=== PATIENT | female | born 2000 | race African-American/Black ===

== ENCOUNTER 2023-05-09 20:34 | Emergency (ER) | payer MEDICAID, OTHER ==
[~2023-05-09] VITALS: Ht 160 cm; Wt 107.0 kg
[2023-05-09 20:36] VITALS: O2SAT 100
[2023-05-09] MEDS ORDERED: FAMOTIDINE 20MG/2ML VIAL IV STA (20:47)
[2023-05-09] MEDS ORDERED: KETOROLAC 30MG/ML VIAL IV STA (20:47)
[2023-05-09] MEDS ORDERED: ONDANSETRON HCL 4MG/2ML INJ IV STA (20:47)
[2023-05-09] MEDS ORDERED: SODIUM CHLORIDE 0.9% 1,000 ML IV ONE (21:00)
[2023-05-09 21:02] LABS: BASOPHILS % 0.6 % (0.0-2.0); EOSINOPHILS % 0.1 % (0.0-5.0); HEMATOCRIT. 39.1 % (36.0-48.0); HEMOGLOBIN. 12.8 g/dL (12.0-16.0); LYMPHOCYTES % 14.1 % (20.0-50.0); MEAN CORPUSCULAR HEMOGLOBIN 27.5 pg (28.0-32.0); MEAN CORPUSCULAR HGB CONC 32.8 g/dL (31.0-37.0); MEAN CORPUSCULAR VOLUME 83.8 fL (81.0-99.0); MEAN PLATELET VOLUME 8.7 fl (7.4-10.4); MONOCYTES % 2.5 % (2.0-8.0); NEUTROPHILS % 82.7 % (40.0-76.0); PLATELET 328 x1000/uL (130-400); RED BLOOD CELL COUNT 4.67 mill/uL (4.2-5.4); RED CELL DISTRIBUTION WIDTH 14.4 % (11.6-14.6); WHITE BLOOD COUNT 11.3 x1000/uL (4.5-11.0)
[2023-05-09 21:13] LABS: HCG SCREEN NEGATIVE
[2023-05-09 21:15] LABS: CHLORIDE 107 mEq/L (98-107); INDEX HEMOLYSI 1 (1-3); INDEX ICTERIC 1 (1-4); INDEX LIPEMIC 1 (1-3); POTASSIUM 3.5 mEq/L (3.5-5.1); SODIUM 141 mEq/L (136-145)
[2023-05-09 21:23] LABS: ALANINE AMINOTRANSFERASE 38 IU/L (13-61); ASPARTATE AMINOTRANSFERASE 22 IU/L (15-37); BILIRUBIN TOTAL 0.5 mg/dL (0.1-1.0); CALCIUM 9.6 mg/dL (8.5-10.1); CARBON DIOXIDE 24 mEq/L (21-32); CREATININE 0.7 mg/dL (0.6-1.3); GLUCOSE 98 mg/dL (70-105); PROTEIN TOTAL 8.4 g/dL (6.0-8.3); UREA NITROGEN BLOOD 9 mg/dL (7-21)
[2023-05-09] MEDS ORDERED: CEFTRIAXONE SODIUM 1 G/VIAL IM NR (22:45)
[2023-05-09] MEDS ORDERED: LIDOCAINE HCL 1% 20ML VIAL (Pyxis) INJ INFIL NR (22:45)
[2023-05-09 23:38] LABS: CLARITY URINE CLOUDY (CLEAR); COLOR URINE ORANGE (YELLOW); GLUCOSE URINE NEGATIVE (NEGATIVE); KETONES URINE 4+ (NEGATIVE); LEUKOCYTE ESTERASE URINE TRACE (NEGATIVE); NITRITE URINE NEGATIVE (NEGATIVE); OCCULT BLOOD URINE 3+ (NEGATIVE); PH URINE 6.5 (4.5-8.0); PROTEIN URINE 1+ (NEGATIVE); SPECIFIC GRAVITY URINE 1.026 (1.005-1.030)
[2023-05-09 23:41] LABS: BACTERIA URINE NONE SEEN; RBC URINE TNTC /hpf (0-2); SQUAMOUS EPITHELIAL CELL URINE 1+ /lpf (RARE/1+); YEAST URINE NONE SEEN
[2023-05-10] MEDS ORDERED: ONDANSETRON HCL 4MG/2ML INJ IV NR (00:45)
[2023-05-10] MEDS ORDERED: KETOROLAC 30MG/ML VIAL IV NR (00:45)
[2023-05-10] MEDS ORDERED: FAMOTIDINE 20MG/2ML VIAL IV NR (00:45)
[2023-05-10] MEDS ORDERED: ACET-2708 PO (02:24)
[2023-05-10] MEDS ORDERED: FAMO20TA8 MT (02:24)
[2023-05-10] MEDS ORDERED: ONDA4TAB50 PO (02:24)
[2023-05-10] MEDS ORDERED: BISM-77 MT (02:24)
[2023-05-10 03:32] VITALS: TEMP 97.8
[2023-05-10 04:23] VITALS: BP 142/106; PULSE 97; RESP 23
== END 2023-05-10 04:28 | disposition home or self-care (01) ==
LOC: ER 20:34
DX: K29.00 Acute gastritis without bleeding (principal); R19.7 Diarrhea, unspecified; J45.909 Unspecified asthma, uncomplicated; Z88.8 Allergy status to other drugs, medicaments and biological substances
CPT/HCPCS: 99285; 74176; 96361; 80053; 81003; 84703; 83690; 85025; 36415; 96374; 96375; J7030; J3490; J1885; J2405

== ENCOUNTER 2024-01-30 10:40 | Emergency (ER) | payer SELFPAY ==
[~2024-01-30] VITALS: Ht 160 cm; Wt 102.1 kg
[~2024-01-30 10:40] MED LIST: ACET-2708 PO; BISM-77 MT; FAMO20TA8 MT; ONDA4TAB50 PO
[2024-01-30 10:58] VITALS: BP 135/108; PULSE 91; RESP 16; TEMP 98.4; O2SAT 100
[2024-01-30 11:18] LABS: BASOPHILS % 0.5 % (0.0-2.0); HEMATOCRIT. 44.7 % (36.0-48.0); HEMOGLOBIN. 14.6 g/dL (12.0-16.0); LYMPHOCYTES % 21.7 % (20.0-50.0); MEAN CORPUSCULAR HGB CONC 32.8 g/dL (31.0-37.0); MEAN CORPUSCULAR VOLUME 85.6 fL (81.0-99.0); MEAN PLATELET VOLUME 9.1 fl (7.4-10.4); MONOCYTES % 8.4 % (2.0-8.0); NEUTROPHILS % 69.4 % (40.0-76.0); PLATELET 353 x1000/uL (130-400); RED BLOOD CELL COUNT 5.22 mill/uL (4.2-5.4); RED CELL DISTRIBUTION WIDTH 15.2 % (11.6-14.6); WHITE BLOOD COUNT 14.8 x1000/uL (4.5-11.0)
[2024-01-30 11:36] LABS: CHLORIDE 101 mEq/L (98-107); POTASSIUM 2.9 mEq/L (3.5-5.1); SODIUM 136 mEq/L (136-145)
[2024-01-30 11:37] LABS: CARBON DIOXIDE 24 mEq/L (21-32)
[2024-01-30 11:38] LABS: CALCIUM 9.9 mg/dL (8.7-10.4)
[2024-01-30 11:40] LABS: CLARITY URINE CLOUDY (CLEAR); COLOR URINE DARK YELLOW (YELLOW); GLUCOSE URINE NEGATIVE (NEGATIVE); KETONES URINE 1+ (NEGATIVE); LEUKOCYTE ESTERASE URINE NEGATIVE (NEGATIVE); NITRITE URINE NEGATIVE (NEGATIVE); OCCULT BLOOD URINE NEGATIVE (NEGATIVE); PROTEIN URINE 1+ (NEGATIVE); SPECIFIC GRAVITY URINE 1.027 (1.005-1.030)
[2024-01-30 11:43] LABS: GLUCOSE 95 mg/dL (70-105); UREA NITROGEN BLOOD 13 mg/dL (9-23)
[2024-01-30 11:44] LABS: ALANINE AMINOTRANSFERASE 15 IU/L (10-49); ASPARTATE AMINOTRANSFERASE 14 IU/L (<34)
[2024-01-30 11:45] LABS: BILIRUBIN DIRECT 0.3 mg/dL (<=3.0); BILIRUBIN TOTAL 0.9 mg/dL (0.1-1.0)
[2024-01-30 12:05] LABS: HCG SCREEN NEGATIVE
[2024-01-30] MEDS: FAMOTIDINE 20MG TABLET PO ONE (12:10)
[2024-01-30] MEDS: ONDANSETRON HCL 4MG/2ML INJ IM ONE (12:11)
[2024-01-30 12:14] LABS: SQUAMOUS EPITHELIAL CELL URINE 3+ /lpf (RARE/1+)
[2024-01-30] MEDS: DICYCLOMINE HCL 10MG/ML 2ML VIAL IM ONE (12:14)
[2024-01-30 12:15] LABS: BACTERIA URINE 4+; MUCUS URINE TRACE /lpf (< = 2+)
[2024-01-30] MEDS: KETOROLAC 30MG/ML VIAL IM ONE (12:15)
[2024-01-30 12:16] LABS: RBC URINE 0-2 /hpf (0-2); WBC URINE 0-2 /hpf (0-2)
[2024-01-30] MEDS: POTASSIUM CHLORIDE 20MEQ/PACKET PO NR (12:20)
[2024-01-30] MEDS: MAGNESIUM/ALUMINUM HYDROXIDE/SIMETHICONE 30ML UDC PO ONE (12:20)
[2024-01-30] MEDS ORDERED: FAMO-135 MT (13:05)
[2024-01-30] MEDS ORDERED: MAG-55 MT (13:05)
[2024-01-30] MEDS ORDERED: ONDA4TAB11 PO (13:05)
== END 2024-01-30 14:02 | disposition home or self-care (01) ==
LOC: ER 10:40
DX: K29.70 Gastritis, unspecified, without bleeding (principal); J45.909 Unspecified asthma, uncomplicated; Z88.8 Allergy status to other drugs, medicaments and biological substances
CPT/HCPCS: 80076; 80048; 81003; 81025; 84703; 83690; 85025; 36415; 96372; 99284; J0500; J1885; J2405; Z7610

== ENCOUNTER 2024-03-25 11:06 | Emergency (ER) | payer MEDICAID ==
[~2024-03-25] VITALS: Ht 160 cm; Wt 109.0 kg
[~2024-03-25 11:06] MED LIST changes: +FAMO-135 MT; +MAG-55 MT; +ONDA-239 PO
[2024-03-25 11:08] VITALS: O2SAT 100
[2024-03-25 11:12] VITALS: BP 171/98; PULSE 70; RESP 16; TEMP 98; O2SAT 99
[2024-03-25 11:41] LABS: BASOPHILS % 0.6 % (0.0-2.0); EOSINOPHILS % 0.6 % (0.0-5.0); HEMATOCRIT. 42.2 % (36.0-48.0); HEMOGLOBIN. 13.8 g/dL (12.0-16.0); LYMPHOCYTES % 25.4 % (20.0-50.0); MEAN CORPUSCULAR HEMOGLOBIN 28.3 pg (28.0-32.0); MEAN CORPUSCULAR HGB CONC 32.8 g/dL (31.0-37.0); MEAN CORPUSCULAR VOLUME 86.4 fL (81.0-99.0); MEAN PLATELET VOLUME 9.2 fl (7.4-10.4); MONOCYTES % 6.6 % (2.0-8.0); NEUTROPHILS % 66.8 % (40.0-76.0); PLATELET 299 x1000/uL (130-400); RED BLOOD CELL COUNT 4.88 mill/uL (4.2-5.4); RED CELL DISTRIBUTION WIDTH 14.3 % (11.6-14.6); WHITE BLOOD COUNT 8.6 x1000/uL (4.5-11.0)
[2024-03-25 11:50] LABS: CHLORIDE 111 mEq/L (98-107); POTASSIUM 3.5 mEq/L (3.5-5.1); SODIUM 141 mEq/L (136-145)
[2024-03-25 11:51] LABS: CARBON DIOXIDE 19 mEq/L (21-32)
[2024-03-25 11:52] LABS: CALCIUM 9.8 mg/dL (8.7-10.4)
[2024-03-25 11:56] LABS: CREATININE 0.8 mg/dL (0.6-1.0)
[2024-03-25 11:57] LABS: GLUCOSE 135 mg/dL (70-105); UREA NITROGEN BLOOD 10 mg/dL (9-23)
[2024-03-25 11:58] LABS: ALANINE AMINOTRANSFERASE 8 IU/L (10-49); ASPARTATE AMINOTRANSFERASE 13 IU/L (<34)
[2024-03-25 11:59] LABS: ALBUMIN 4.9 g/dL (3.2-4.8); BILIRUBIN DIRECT 0.2 mg/dL (<=3.0); BILIRUBIN TOTAL 0.6 mg/dL (0.1-1.0); PROTEIN TOTAL 7.7 g/dL (6.0-8.3)
[2024-03-25] MEDS ORDERED: METOCLOPRAMIDE HCL 10MG/2ML VIAL IV STA (12:23)
[2024-03-25] MEDS ORDERED: FAMOTIDINE 20MG/2ML VIAL IV STA (12:23)
[2024-03-25] MEDS ORDERED: SODIUM CHLORIDE 0.9% 1,000 ML IV ONE (12:30)
[2024-03-25 13:40] LABS: CLARITY URINE CLOUDY (CLEAR); COLOR URINE DARK YELLOW (YELLOW); GLUCOSE URINE NEGATIVE (NEGATIVE); KETONES URINE 3+ (NEGATIVE); LEUKOCYTE ESTERASE URINE 2+ (NEGATIVE); NITRITE URINE NEGATIVE (NEGATIVE); OCCULT BLOOD URINE 3+ (NEGATIVE); PROTEIN URINE 2+ (NEGATIVE); SPECIFIC GRAVITY URINE 1.025 (1.005-1.030)
[2024-03-25 13:47] LABS: UCG KIT LOT# 847686; UCG SCREEN NEGATIVE
[2024-03-25 13:54] LABS: BACTERIA URINE 2+; RBC URINE TNTC /hpf (0-2); SQUAMOUS EPITHELIAL CELL URINE 1+ /lpf (RARE/1+); YEAST URINE NONE SEEN
== END 2024-03-25 16:11 | disposition left against medical advice (07) ==
LOC: ER 11:27
DX: R11.2 Nausea with vomiting, unspecified (principal); Z91.048 Other nonmedicinal substance allergy status; Z79.899 Other long term (current) drug therapy; J45.909 Unspecified asthma, uncomplicated
CPT/HCPCS: 99285; 76705; 71045; 80076; 80048; 81003; 81025; 83690; 85025; 36415; 93005; J7030

== ENCOUNTER 2024-04-18 09:24 | Emergency (ER) | payer MEDICAID ==
[~2024-04-18] VITALS: Ht 160 cm; Wt 104.3 kg
[2024-04-18 09:30] VITALS: O2SAT 100
[2024-04-18 10:16] VITALS: BP 160/111; PULSE 77; RESP 18; TEMP 36.61404; O2SAT 99
[2024-04-18] MEDS: MAGNESIUM/ALUMINUM HYDROXIDE/SIMETHICONE 30ML UDC PO STA (10:19)
[2024-04-18] MEDS: ONDANSETRON 4MG ODT PO STA (10:19)
[2024-04-18 10:44] LABS: BASOPHILS % 0.3 % (0.0-2.0); EOSINOPHILS % 0.4 % (0.0-5.0); HEMATOCRIT. 43.7 % (36.0-48.0); LYMPHOCYTES % 25.2 % (20.0-50.0); MEAN CORPUSCULAR HEMOGLOBIN 27.7 pg (28.0-32.0); MEAN CORPUSCULAR VOLUME 86.5 fL (81.0-99.0); MEAN PLATELET VOLUME 9.1 fl (7.4-10.4); MONOCYTES % 6.6 % (2.0-8.0); NEUTROPHILS % 67.5 % (40.0-76.0); PLATELET 332 x1000/uL (130-400); RED BLOOD CELL COUNT 5.05 mill/uL (4.2-5.4); RED CELL DISTRIBUTION WIDTH 14.4 % (11.6-14.6); WHITE BLOOD COUNT 11.2 x1000/uL (4.5-11.0)
[2024-04-18 10:58] LABS: HCG SCREEN NEGATIVE
[2024-04-18 11:02] LABS: CLARITY URINE TURBID (CLEAR); COLOR URINE DARK YELLOW (YELLOW); GLUCOSE URINE NEGATIVE (NEGATIVE); KETONES URINE 3+ (NEGATIVE); LEUKOCYTE ESTERASE URINE TRACE (NEGATIVE); NITRITE URINE NEGATIVE (NEGATIVE); OCCULT BLOOD URINE NEGATIVE (NEGATIVE); PH URINE 5.5 (4.5-8.0); PROTEIN URINE 1+ (NEGATIVE); SPECIFIC GRAVITY URINE 1.033 (1.005-1.030)
[2024-04-18 11:05] LABS: TROPONIN I HIGH SENSITIVITY < 4 ng/L (3.0-34)
[2024-04-18 11:35] LABS: BACTERIA URINE 2+; SQUAMOUS EPITHELIAL CELL URINE 2+ /lpf (RARE/1+); YEAST URINE NONE SEEN
[2024-04-18 11:36] LABS: AMORPHOUS SEDIMENT URINE 4+ /lpf
[2024-04-18 15:26] LABS: CHLORIDE 109 mEq/L (98-107); POTASSIUM 3.6 mEq/L (3.5-5.1); SODIUM 138 mEq/L (136-145)
[2024-04-18 15:27] LABS: CARBON DIOXIDE 17 mEq/L (21-32)
[2024-04-18 15:28] LABS: CALCIUM 10.2 mg/dL (8.7-10.4)
[2024-04-18 15:32] LABS: CREATININE 0.9 mg/dL (0.6-1.0); GLUCOSE 116 mg/dL (70-105)
[2024-04-18 15:33] LABS: UREA NITROGEN BLOOD 9 mg/dL (9-23)
[2024-04-18 15:34] LABS: ALANINE AMINOTRANSFERASE 9 IU/L (10-49); ALBUMIN 4.7 g/dL (3.2-4.8); ASPARTATE AMINOTRANSFERASE 14 IU/L (<34)
[2024-04-18 15:35] LABS: BILIRUBIN TOTAL 0.7 mg/dL (0.1-1.0); PROTEIN TOTAL 8.3 g/dL (6.0-8.3)
== END 2024-04-18 15:02 | disposition left against medical advice (07) ==
LOC: ER 09:24
DX: K29.70 Gastritis, unspecified, without bleeding (principal); J45.909 Unspecified asthma, uncomplicated; Z91.048 Other nonmedicinal substance allergy status; Z79.899 Other long term (current) drug therapy; Z98.890 Other specified postprocedural states
CPT/HCPCS: 99285; 71045; 80053; 81003; 81025; 84703; 83690; 85025; 84484; 36415; 93005; Q0162

== ENCOUNTER 2024-07-05 08:44 | Emergency (ER) | payer MEDICAID ==
[~2024-07-05] VITALS: Ht 160 cm; Wt 102.1 kg
[2024-07-05] MEDS ORDERED: ONDANSETRON 4MG ODT PO ONE (09:30)
[2024-07-05] MEDS ORDERED: FAMOTIDINE 20MG TABLET PO ONE (09:30)
[2024-07-05] MEDS ORDERED: MAGNESIUM/ALUMINUM HYDROXIDE/SIMETHICONE 30ML UDC PO ONE (09:30)
[2024-07-05 10:27] LABS: BASOPHILS % 0.2 % (0.0-2.0); EOSINOPHILS % 0.1 % (0.0-5.0); HEMATOCRIT. 41.6 % (36.0-48.0); HEMOGLOBIN. 13.7 g/dL (12.0-16.0); MEAN CORPUSCULAR HEMOGLOBIN 28.6 pg (28.0-32.0); MEAN CORPUSCULAR HGB CONC 32.9 g/dL (31.0-37.0); MEAN CORPUSCULAR VOLUME 86.9 fL (81.0-99.0); MEAN PLATELET VOLUME 9.3 fl (7.4-10.4); MONOCYTES % 7.5 % (2.0-8.0); NEUTROPHILS % 80.2 % (40.0-76.0); PLATELET 330 x1000/uL (130-400); RED BLOOD CELL COUNT 4.79 mill/uL (4.2-5.4); RED CELL DISTRIBUTION WIDTH 14.3 % (11.6-14.6); WHITE BLOOD COUNT 17.1 x1000/uL (4.5-11.0)
[2024-07-05 10:36] LABS: CARBON DIOXIDE 25 mEq/L (21-32); CHLORIDE 102 mEq/L (98-107); POTASSIUM 3.6 mEq/L (3.5-5.1); SODIUM 137 mEq/L (136-145)
[2024-07-05 10:37] LABS: CALCIUM 9.9 mg/dL (8.7-10.4)
[2024-07-05 10:41] LABS: CREATININE 0.8 mg/dL (0.6-1.0)
[2024-07-05 10:42] LABS: GLUCOSE 94 mg/dL (70-105); UREA NITROGEN BLOOD 11 mg/dL (9-23)
[2024-07-05 10:43] LABS: ALANINE AMINOTRANSFERASE 9 IU/L (10-49); ASPARTATE AMINOTRANSFERASE 12 IU/L (<34)
[2024-07-05 10:44] LABS: ALBUMIN 4.6 g/dL (3.2-4.8); BILIRUBIN DIRECT 0.2 mg/dL (<=3.0); BILIRUBIN TOTAL 0.5 mg/dL (0.1-1.0); PROTEIN TOTAL 7.7 g/dL (6.0-8.3)
[2024-07-05 11:02] LABS: HCG SCREEN NEGATIVE
[2024-07-05 11:19] LABS: ETHANOL BLOOD < 10 mg/dL (<10)
[2024-07-05] MEDS: ONDANSETRON 4MG ODT PO NR (11:41)
[2024-07-05] MEDS: MAGNESIUM/ALUMINUM HYDROXIDE/SIMETHICONE 30ML UDC PO NR (11:42)
[2024-07-05] MEDS: FAMOTIDINE 20MG TABLET PO NR (11:42)
[2024-07-05] MEDS ORDERED: IPRATROPIUM/ALBUTEROL 0.5-3(2.5)MG/3ML NEB HHN ONE (11:45)
[2024-07-05] MEDS: PREDNISONE 20MG TABLET PO NR (11:45)
[2024-07-05] MEDS ORDERED: PREDNISONE 20MG TABLET PO ONE (11:45)
[2024-07-05 11:56] LABS: CLARITY URINE CLOUDY (CLEAR); COLOR URINE DARK YELLOW (YELLOW); GLUCOSE URINE NEGATIVE (NEGATIVE); KETONES URINE 4+ (NEGATIVE); LEUKOCYTE ESTERASE URINE NEGATIVE (NEGATIVE); NITRITE URINE NEGATIVE (NEGATIVE); OCCULT BLOOD URINE NEGATIVE (NEGATIVE); PROTEIN URINE 2+ (NEGATIVE); SPECIFIC GRAVITY URINE 1.039 (1.005-1.030)
[2024-07-05] MEDS: IPRATROPIUM/ALBUTEROL 0.5-3(2.5)MG/3ML NEB HHN NR (12:02)
[2024-07-05 12:06] LABS: *AMPHETAMINES SCREEN URINE NEGATIVE (NEGATIVE); *BENZODIAZEPINES SCREEN URINE NEGATIVE (NEGATIVE)
[2024-07-05 12:07] LABS: *BARBITURATES SCREEN URINE NEGATIVE (NEGATIVE); *COCAINE SCREEN URINE NEGATIVE (NEGATIVE); CANNABINOID URINE SCREEN PRESUMPTIVE POSITIVE (NEGATIVE); ECSTASY MDMA SCREEN URINE NEGATIVE (NEGATIVE); METHADONE URINE SCREEN NEGATIVE (NEGATIVE); OPIATES URINE SCREEN NEGATIVE (NEGATIVE); PHENCYCLIDINE URINE SCREEN NEGATIVE (NEGATIVE)
[2024-07-05 12:15] VITALS: PULSE 89; RESP 20; O2SAT 97
[2024-07-05 12:16] LABS: BACTERIA URINE 3+; SQUAMOUS EPITHELIAL CELL URINE 3+ /lpf (RARE/1+)
[2024-07-05 12:17] LABS: MUCUS URINE 1+ /lpf (< = 2+); RBC URINE 0-2 /hpf (0-2); WBC URINE 0-2 /hpf (0-2)
[2024-07-05] MEDS: SODIUM CHLORIDE 0.9% 1,000 ML IV ONE (12:49)
[2024-07-05] MEDS: MORPHINE SULFATE 4 MG/ML INJ (FOR IV/IM USE) IV ONE (12:57)
[2024-07-05] MEDS: METOCLOPRAMIDE HCL 10MG/2ML VIAL IV ONE (12:57)
[2024-07-05] MEDS ORDERED: IOHEXOL-300 100 ML BOTTLE ONE (13:52)
[2024-07-05 16:21] VITALS: BP 117/81; PULSE 74; RESP 18; TEMP 36.89184; O2SAT 100
== END 2024-07-05 16:23 | disposition home or self-care (01) ==
LOC: ER 08:44
DX: R11.2 Nausea with vomiting, unspecified (principal); J45.909 Unspecified asthma, uncomplicated; Z79.899 Other long term (current) drug therapy
CPT/HCPCS: 80076; 80305; 80048; 81003; 81025; 80320; 84703; 83690; 85025; 36415; 74177; 94640; 96361; 96374; 96375; 99285; Q9967; Q0162; J7512; J2765; J2270; Z7610 ×3; J7030; G0480

== ENCOUNTER 2024-07-17 09:56 | Emergency (ER) | payer MEDICAID ==
[~2024-07-17] VITALS: Ht 160 cm; Wt 104.0 kg
[2024-07-17 10:17] VITALS: O2SAT 99
[2024-07-17] MEDS ORDERED: ACET-2708 MT (11:21)
[2024-07-17] MEDS ORDERED: PSEU30TA36 MT (11:21)
[2024-07-17] MEDS ORDERED: FLUT16SP15 BOTHNSTRLS (11:21)
[2024-07-17] MEDS ORDERED: IBUP-2029 MT (11:21)
[2024-07-17 11:32] VITALS: BP 146/70; PULSE 87; RESP 18; TEMP 36.83628; O2SAT 99
== END 2024-07-17 12:23 | disposition home or self-care (01) ==
LOC: ER 09:56
DX: T16.2XXA Foreign body in left ear, initial encounter (principal); J03.90 Acute tonsillitis, unspecified; J30.9 Allergic rhinitis, unspecified; W44.9XXA Unspecified foreign body entering into or through a natural orifice, initial encounter; Y93.89 Activity, other specified; Y92.89 Other specified places as the place of occurrence of the external cause; Y99.8 Other external cause status
CPT/HCPCS: 99282